=== PATIENT | female | born 1965 | race Caucasian/White ===

== ENCOUNTER 2017-01-05 12:15 | Emergency (ER) | payer BC, OTHER ==
--- NOTE | 2017-01-05 12:32 | CPEKG ---
Heart Rate: 83 RR Interval: 723 P-R Interval: 136 QRSD Interval: 86 QT Interval: 360 QTC Interval: 423 P [place]: 62 QRS [place]: 34 T Wave [place]: 24 EKG Severity - NORMAL ECG - EKG Impression: SINUS RHYTHM Electronically Signed By: Steve Castaneda 06-Jan-2017 14:40:52
--- NOTE | 2017-01-05 12:51 | EDPHY ---
HPI/HX/ROS/PE/MDM Narrative: Chief complaint: Rapid heart rate HPI: 51-year-old healthy female presenting complaining of her heart rate being up. Patient states she feels a bit anxious as well. Denies any chest pain or shortness of breath. Has had some subjective fevers and chills at home. Her children have been ill with an upper respiratory type of infection the last couple of days. She is concerned because he has a family history of coronary disease at a young age. She states that when she started feeling anxious she checked her heart rate and noticed that the seem to be high. Denies other past medical history. Takes no medications. No allergies to medications. She does not smoke. She does not drink alcohol. She does not use recreational drugs. She does drink occasional caffeine, last was yesterday. ROS: 10 point Review of Systems is negative except as noted in the HPI. Physical exam: Gen: Awake, Alert, No Distress, mildly anxious appearing HEENT: Nose: no rhinorrhea Eyes: PERRLA, EOMI Mouth: Moist mucosa Neck: Supple, no JVD Chest: nontender, lungs clear to auscultation Heart: S1, S2 normal, no murmur Abd: Soft, non-tender, no guarding Back: no CVA tenderness, no midline tenderness Ext: no edema, non-tender Skin: no rash Neuro: CN II-XII intact, Sensation grossly intact, Strength 5/5 in bilateral upper and lower extremities ED Course: EC sinus rhythm with a rate of 83, normal axis, normal intervals, no acute ST or T-wave changes. Impression: Normal ECG. CBC, basic metabolic panel and troponin all normal. Patient has had her heart rate subtle to the 70s. However when I enter the room a goes back up the 90s. Do think there is a component of white coat syndrome here. She does have some symptoms consistent with a viral infection. I think that she probably has a early viral upper respiratory infection with some low-grade fevers. There is nothing to suggest acute coronary syndrome at this time. Will discharge with instructions to follow up with primary care physician and possible legal secretary receptionist just for a baseline stress test given her strong family history of coronary disease. - Data Points Laboratory Results: Laboratory Results 01/05/17 12:35 01/05/17 12:35 01/05/17 12:35 WBC 5.79 10^3/uL (3.80-9.50) RBC 4.85 10^6/uL (4.18-5.33) Hgb 14.9 g/dL (12.6-16.3) Hct 43.4 % (38.0-47.0) MCV 89.5 fL (81.5-99.8) MCH 30.7 pg (27.9-34.1) MCHC 34.3 g/dL (32.4-36.7) RDW 12.2 % (11.5-15.2) Plt Count 238 10^3/uL (150-400) MPV 10.7 fL (8.7-11.7) Neut % (Auto) 73.1 % (39.3-74.2) Lymph % (Auto) 20.0 % (15.0-45.0) Hawkins % (Auto) 5.0 % (4.5-13.0) Eos % (Auto) 0.7 % (0.6-7.6) Baso % (Auto) 0.9 % (0.3-1.7) Nucleat RBC Rel Count 0.0 % (0.0-0.2) Absolute Neuts (auto) 4.23 10^3/uL (1.70-6.50) Absolute Lymphs (auto) 1.16 10^3/uL (1.00-3.00) Absolute Monos (auto) 0.29 L 10^3/uL (0.30-0.80) Absolute Eos (auto) 0.04 10^3/uL (0.03-0.40) Absolute Basos (auto) 0.05 10^3/uL (0.02-0.10) Absolute Nucleated RBC 0.00 10^3/uL (0-0.01) Immature Gran % 0.3 % (0.0-1.1) Immature Gran # 0.02 10^3/uL (0.00-0.10) Sodium 144 mEq/L (134-144) Potassium 4.1 mEq/L (3.5-5.2) Chloride 106 mEq/L (97-110) Carbon Dioxide 25 mEq/l (22-31) Anion Gap 13 mEq/L (8-16) BUN 13 mg/dL (7-23) Creatinine 0.7 mg/dL (0.6-1.0) Estimated GFR > 60 Glucose 93 mg/dL (70-100) Calcium 9.7 mg/dL (8.5-10.4) Troponin I < 0.012 ng/mL (0-0.034) General Time Seen by Provider: 01/05/17 12:33 Initial Vital Signs: Initial Vital Signs Temperature (C) 36.7 C 01/05/17 12:19 Heart Rate 90 01/05/17 12:19 Respiratory Rate 16 01/05/17 12:19 Blood Pressure 143/89 H 01/05/17 12:19 O2 Sat (%) 97 01/05/17 12:19 O2 Delivery Mode Room Air Allergies/Adverse Reactions: No Known Allergies Allergy (Unverified 01/05/17 12:21) Departure - Departure Disposition: Home, Routine, Self-Care Clinical Impression: Tachycardia Condition: Good Instructions: Tachycardia (ED) Additional Instructions: Follow up with primary care physician in 3-4 days if symptoms are not improving. Return to the emergency department for chest pain, shortness of breath, fevers, chills, nausea, vomiting, or any other concerns.
[2017-01-05 13:02] LABS: % IMMATURE GRANULYOCYTES 0.3 % (0.0-1.1); ABSOLUTE IMMATURE GRANULOCYTES 0.02 10^3/uL (0.00-0.10); ADD DIFF? NO; ADD MORPH? NO; ADD SCAN? NO; ATYPICAL LYMPHOCYTE FLAG 10 (0-99); FRAGMENT RBC FLAG 0 (0-99); HEMATOCRIT 43.4 % (38.0-47.0); HEMOGLOBIN 14.9 g/dL (12.6-16.3); LEFT SHIFT FLG 0 (0-99); LIPEMIA HEMOLYSIS FLAG 90 (0-99); MEAN CELL HEMOGLOBIN 30.7 pg (27.9-34.1); MEAN CELL HEMOGLOBIN CONCENTR. 34.3 g/dL (32.4-36.7); MEAN CELL VOLUME 89.5 fL (81.5-99.8); MEAN PLATELET VOLUME 10.7 fL (8.7-11.7); PLATELET CLUMPS FLAG 0 (0-99); PLATELET COUNT 238 10^3/uL (150-400); RED BLOOD CELL COUNT 4.85 10^6/uL (4.18-5.33); RED CELL DISTRIBUTION WIDTH 12.2 % (11.5-15.2)
[2017-01-05 13:24] LABS: ANION GAP 13 mEq/L (8-16); CALCIUM 9.7 mg/dL (8.5-10.4); CARBON DIOXIDE 25 mEq/l (22-31); CHLORIDE 106 mEq/L (97-110); CREATININE 0.7 mg/dL (0.6-1.0); GLOMERULAR FILTRATION RATE > 60; GLUCOSE 93 mg/dL (70-100); POTASSIUM 4.1 mEq/L (3.5-5.2); SODIUM 144 mEq/L (134-144)
[2017-01-05 13:33] LABS: TROPONIN I < 0.012 ng/mL (0-0.034)
[2017-01-05 14:18] VITALS: BP 139/81; PULSE 86; RESP 18; TEMP 97.9; O2SAT 94
== END 2017-01-05 14:17 | disposition home or self-care (01) ==
DX: R00.0 Tachycardia, unspecified (principal)

== ENCOUNTER → 2019-01-29 | Outpatient (CLI) | payer OTHER | LOC: FIMAGING 10:09 | PROVIDERS: ATTEND Obstetrics & Gynecology | DX: Z12.31 Encounter for screening mammogram for malignant neoplasm of breast (principal) ==

== ENCOUNTER → 2019-02-05 | Outpatient (CLI) | payer OTHER | LOC: FIMAGING 10:08 | PROVIDERS: ATTEND Obstetrics & Gynecology | DX: R92.8 Other abnormal and inconclusive findings on diagnostic imaging of breast (principal) ==